=== PATIENT | female | born 2000 | race Caucasian/White ===

== ENCOUNTER 2022-05-25 15:20 | Observation (INO) | payer OTHER ==
[2022-05-25 16:23] LABS: BLOOD UREA NITROGEN,BUN 14 mg/dL (7.0-18.0); CARBON DIOXIDE,CO2 29.6 mmol/L (21.0-32.0); CHLORIDE,CL 100 mmol/L (98-107); GLUCOSE RANDOM 114 mg/dL (74-106); POTASSIUM,K 3.6 mmol/L (3.5-5.1); SODIUM,NA 138 mmol/L (136-145)
[2022-05-25 16:35] LABS: ESTIMATED GFR 72 mL/min (>60)
[2022-05-25] MEDS ORDERED: Sodium Chloride 0.9% 1,000 ML IV ONE (17:12)
[2022-05-25] MEDS ORDERED: Piperacillin/Tazobactam 3.375 GM in Sodium Chloride 0.9% 50 ML IV ONE (17:24)
[2022-05-25 17:46] LABS: CORONAVIRUS COVID-19 NAA NEGATIVE (NEGATIVE); INFLUENZA A NAA NEGATIVE (NEGATIVE); INFLUENZA B NAA NEGATIVE (NEGATIVE)
[2022-05-25] MEDS ORDERED: Propofol 200 MG/20 ML SDV ONE ×4 (18:15→20:42)
[2022-05-25] MEDS ORDERED: fentaNYL 250 MCG/5 ML SDV ONE ×2 (18:15→19:21)
[2022-05-25] MEDS ORDERED: Famotidine 20 MG/2 ML SDV ONE (18:16)
[2022-05-25] MEDS ORDERED: Ropivacaine 0.5% 5 MG/ML 30 ML SDV ONE (18:16)
[2022-05-25] MEDS ORDERED: fentaNYL 100 MCG/2 ML SDV ONE ×2 (18:18→19:09)
[2022-05-25] MEDS ORDERED: Bupivacaine 0.5% 30 ML SDV ONE (18:30)
[2022-05-25] MEDS ORDERED: ceFAZolin 1 GM Vial ONE (19:27)
[2022-05-25] MEDS ORDERED: Ondansetron 4 MG/2 ML SDV ONE (20:24)
[2022-05-25] MEDS ORDERED: Dexamethasone 4 MG/ML 5 ML MDV ONE (20:24)
[2022-05-25] MEDS ORDERED: Ketorolac 30 MG/ML SDV ONE (20:24)
[2022-05-25] MEDS ORDERED: Sugammadex Sodium 200 MG/2 ML VIAL ONE (20:24)
[2022-05-25] MEDS ORDERED: Sodium Chloride 0.9% 20 ML SDV IV PRN (21:00)
[2022-05-25] MEDS ORDERED: Acetaminophen/oxyCODONE 325-5 MG Tab PO PRN (21:00)
[2022-05-25] MEDS ORDERED: Sodium Chloride 0.9% 10 ML Syringe FLUSH PRN (21:00)
[2022-05-25] MEDS ORDERED: Sodium Chloride 0.9% 2.5 ML Syringe FLUSH PRN (21:00)
[2022-05-25] MEDS ORDERED: diphenhydrAMINE 25 MG Cap PO PRN (21:00)
[2022-05-25] MEDS ORDERED: Ketorolac 30 MG/ML SDV IVPUSH PRN (21:00)
[2022-05-25] MEDS ORDERED: HYDROmorphone 2 MG/ML Syringe IVPUSH PRN (21:00)
[2022-05-25] MEDS ORDERED: HYDROmorphone 1 MG/ML Syringe IVPUSH PRN (21:11)
[2022-05-26] MEDS: Piperacillin/Tazobactam 3.375 GM in Sodium Chloride 0.9% 50 ML IV SCH ×4 (00:04→18:18)
[2022-05-26] MEDS: Docusate Sodium 100 MG Cap PO SCH (08:15)
[2022-05-26] MEDS: Ondansetron 4 MG/2 ML SDV IVPUSH PRN (10:18)
[2022-05-26] MEDS ORDERED: Enoxaparin 40 MG/0.4 ML Syringe SUBCUT SCH (21:00)
[2022-05-27] MEDS: Piperacillin/Tazobactam 3.375 GM in Sodium Chloride 0.9% 50 ML IV SCH ×2 (00:05→06:00)
[2022-05-27] MEDS: Docusate Sodium 100 MG Cap PO SCH (10:01)
[2022-05-27] MEDS: Ondansetron 4 MG/2 ML SDV IVPUSH PRN (10:50)
== END 2022-05-27 01:45 | disposition home or self-care (01) ==
LOC: MW.ED 15:20 → MW.SDS 18:17 → MW.MS 18:17 → MW.SDS 21:00 → MW.MS 21:01
PROVIDERS: ADMIT Surgery; ATTEND Surgery
DX: K35.80 Unspecified acute appendicitis (principal); Z79.899 Other long term (current) drug therapy; Z20.822 Contact with and (suspected) exposure to COVID-19; Z91.040 Latex allergy status; Z98.890 Other specified postprocedural states
CPT/HCPCS: 0240U; 36415; 44970; 80053; 81001; 84703; 85025; 85027; 87086; 96365; 96366; 96372; 96375; 96376; 99284; A9270; G0378; J0131; J0690; J1100; J1650; J1885; J2405; J2543; J2704; J2795; J3010; J3490; J7030; J7050; 99285